=== PATIENT | male | born 1975 | race Caucasian/White ===

== ENCOUNTER 2019-10-11 08:32 | Emergency (ER) | payer OTHER, BC ==
[2019-10-11] MEDS ORDERED: ACETAMINOPHEN 325 MG TABLET PO ONE (09:06)
--- NOTE | 2019-10-11 09:59 | RADIOLOGY REPORT (SQ) ---
EXAM DESCRIPTION: HUMERUS LEFT COMPLETED DATE/TIME: 10/11/2019 9:34 am REASON FOR STUDY: fell off excavator, pain with movement COMPARISON: None. NUMBER OF VIEWS: Two views. TECHNIQUE: Two radiographic images were acquired of the left humerus to include elbow and shoulder i n at least one projection. LIMITATIONS: None. FINDINGS: MINERALIZATION: Normal. BONES: No fracture, periosteal bone formation or osseous lesion. The glenohumeral joint is in anatom ic alignment. SOFT TISSUES: No swelling or radiopaque foreign body. OTHER: No other finding. IMPRESSION: No acute osseous abnormality of the left humerus. TECHNICAL DOCUMENTATION: JOB ID: [id number] [employer]- All Rights Reserved Reading location - IP/workstation name: [email or web address]
--- NOTE | 2019-10-11 09:59 | RADIOLOGY REPORT (SQ) ---
EXAM DESCRIPTION: SHOULDER LEFT 2 OR MORE VIEWS COMPLETED DATE/TIME: 10/11/2019 9:34 am REASON FOR STUDY: fell off excavator, pain with movement COMPARISON: None. NUMBER OF VIEWS: Three views. TECHNIQUE: Internal rotation, external rotation, and Y view images acquired of the left shoulder. LIMITATIONS: None. FINDINGS: MINERALIZATION: Normal. BONES: No acute fracture. JOINTS: No dislocation. 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 VISUALIZED LUNGS AND RIBS: No pneumothorax or rib fracture. SOFT TISSUES: No radiopaque foreign body. OTHER: No other finding. IMPRESSION: No acute osseous abnormality of the left shoulder. TECHNICAL DOCUMENTATION: JOB ID: [id number] [employer]- All Rights Reserved Reading location - IP/workstation name: [email or web address]
[2019-10-11] MEDS ORDERED: LIDOCAINE 5% (700 MG) TRANSDERMAL ADH..PATCH TP ONE (10:03)
--- NOTE | 2019-10-11 10:05 | ER Document Report ---
HPI - HPI Patient complains to provider of: Left shoulder injury Time Seen by Provider: 10/11/19 09:37 Onset: This afternoon Onset/Duration: Sudden Quality of pain: Achy Pain Level: 4 Context: Patient states that he was attempting to load an excavator onto a tractor trailer. Patient states he was holding on with his left arm slipped and fell about 5 feet jarring the left shoulder. Patient states he adrianna the shoulder as his weight dropped while he was holding onto the equipment. Patient states he landed on his right hip. Patient only reports mild tenderness to the right hip but is primarily concerned about the pain to the left shoulder joint. Associated Symptoms: Other - Left shoulder joint pain. denies: Headache, Nausea, Vomiting Exacerbated by: Movement Relieved by: Denies Similar symptoms previously: No Recently seen / treated by doctor: No - ROS ROS below otherwise negative: Yes Systems Reviewed and Negative: Yes All other systems reviewed and negative - NEURO Neurology: DENIES: Headache, Weakness - CARDIOVASCULAR Cardiovascular: DENIES: Chest pain - RESPIRATORY Respiratory: DENIES: Trouble Breathing - GASTROINTESTINAL Gastrointestinal: DENIES: Nausea, Patient vomiting - MUSCULOSKELETAL Musculoskeletal: REPORTS: Extremity pain. DENIES: Back Pain, Neck Pain - DERM Skin Color: Normal Skin Problems: None Past Medical History - General Information source: Patient - Social History Smoking Status: Never Smoker Chew tobacco use (# tins/day): No Frequency of alcohol use: None Drug Abuse: None Occupation: Optometric Technician Family History: Reviewed & Not Pertinent Patient has suicidal ideation: No Patient has homicidal ideation: No - Past Medical History Cardiac Medical History: Reports: Hx Hypertension Endocrine Medical History: Reports: Hx Diabetes Mellitus Type 2 Past Surgical History: Reports: Hx Orthopedic Surgery Vertical Provider Document - CONSTITUTIONAL Agree With Documented VS: Yes Exam Limitations: No Limitations General Appearance: WD/WN, No Apparent Distress - INFECTION CONTROL TRAVEL OUTSIDE OF THE [place] IN LAST 30 DAYS: No - HEENT HEENT: Atraumatic, Normocephalic - NECK Neck: Normal Inspection, Supple - RESPIRATORY Respiratory: Breath Sounds Normal, No Respiratory Distress - CARDIOVASCULAR Cardiovascular: Regular Rate, Regular Rhythm Pulses: Normal: Radial - GI/ABDOMEN Gastrointestinal: Abdomen Soft, Abdomen Non-Tender, No Organomegaly - BACK Back: Abnormal Inspection - Left trapezius muscle tenderness with spasm Notes: No spinal midline tenderness step-off or deformity - MUSCULOSKELETAL/EXTREMETIES Musculoskeletal/Extremeties: MAEW, Tender - Tenderness to left shoulder AC joint, tenderness increases with extension and abduction. Patient with full passive range of motion, tenderness to proximal half of the left humerus, soft muscle compartments to left upper arm, no ecchymosis, No Edema. negative: Eccymosis - NEURO Level of Consciousness: Awake, Alert, Appropriate Motor/Sensory: No Motor Deficit, No Sensory Deficit - DERM Integumentary: Warm, Dry, No Rash Course - Re-evaluation Re-evalutation: 10/11/19 10:31 Patient without any acute fracture or dislocation. Will treat for sprain at this time. Patient advised that he cannot drive when taking narcotic medication. Patient verbalized understanding of instructions. Patient encouraged to follow-up with orthopedics for recheck. - Vital Signs Vital signs: Temp Pulse Resp BP Pulse Ox 97.5 F 101 H 18 168/96 H 95 10/11/19 09:03 10/11/19 09:03 10/11/19 09:03 10/11/19 09:03 10/11/19 09:03 - Diagnostic Test Radiology reviewed: Image reviewed, Reports reviewed Procedures - Immobilization Left Shoulder Pre-Proc Neuro Vasc Exam: Normal Immobilizer type: Shoulder immobilizer Performed by: PCT Post-Proc Neuro Vasc Exam: Normal Alignment checked and good: Yes Discharge - Discharge Clinical Impression: Strain of left upper arm Qualifiers: Encounter type: initial encounter Qualified Code(s): S46.912A - Strain of unspecified muscle, fascia and tendon at shoulder and upper arm level, left arm, initial encounter Fall Qualifiers: Encounter type: initial encounter Qualified Code(s): W19.XXXA - Unspecified fall, initial encounter Sprain of left shoulder Qualifiers: Encounter type: initial encounter Shoulder sprain type: unspecified sprain Qualified Code(s): S43.402A - Unspecified sprain of left shoulder joint, initial encounter Condition: Stable Disposition: HOME, SELF-CARE Instructions: Muscle Relaxers ([facility]), Muscle Strain ([facility]), Shoulder Injury ([facility]) Additional Instructions: Return immediately for any new or worsening symptoms Followup with your primary care provider, call tomorrow to make a followup appointment Perform gentle range of motion exercises to the left shoulder joint Wear sling only for the next 4 to 5 days and then remove. If still having pain follow-up with orthopedics for further evaluation Prescriptions: Lidocaine [Lidoderm 5% (700 mg) Transdermal Patch] 1 patch TP DAILY PRN #10 adh..patch PRN Reason: Hydrocodone/Acetaminophen [[place] 5-325 mg Tablet] 1 tab PO Q6 PRN #10 tablet PRN Reason: Metaxalone [Skelaxin 800 mg Tablet] 800 mg PO ASDIR PRN #15 tablet PRN Reason: Forms: Return to Work Referrals: [facility] [Provider Group] - Follow up as needed GINNY TENORIO MD [ACTIVE PROVISIONAL STAFF] - Follow up as needed
[2019-10-11 10:51] VITALS: BP 156/75
== END 2019-10-11 10:48 | disposition home or self-care (01) ==
LOC: ER 08:32
DX: S43.402A Unspecified sprain of left shoulder joint, initial encounter (principal); S46.912A Strain of unspecified muscle, fascia and tendon at shoulder and upper arm level, left arm, initial encounter; M25.512 Pain in left shoulder; W17.89XA Other fall from one level to another, initial encounter; Y93.89 Activity, other specified; M62.830 Muscle spasm of back; E11.9 Type 2 diabetes mellitus without complications; I10 Essential (primary) hypertension
CPT/HCPCS: 99283; 73060; 73030; L3650